=== PATIENT | male | born 1990 | race Caucasian/White ===

== ENCOUNTER 2023-03-06 18:29 | Emergency (ER) | payer OTHER ==
[~2023-03-06] VITALS: Ht 185.4 cm; Wt 93.0 kg
[2023-03-06 18:48] VITALS: BP_SYST 152
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
--- NOTE | 2023-03-06 19:19 | NUR ---
Dr. Gardiner with patient in triage for MSE.
[2023-03-06] MEDS ORDERED: IBUPROFEN 800 MG TABLET PO ONE (19:30)
[2023-03-06] MEDS ORDERED: DICL20GE TP (21:15)
[2023-03-06] MEDS ORDERED: IBUP-1971 PO (21:15)
[2023-03-06 21:55] VITALS: BP_SYST 140
--- NOTE | 2023-03-06 21:55 | NUR ---
Patient given written and verbal discharge instructions and verbalizes understanding. ER DR. FORREST discussed with patient the results and treatment provided. Patient in stable condition. ID arm band removed. Rx of MOTRIN AND VOLTAREN given. Patient educated on pain management and to follow up with PMD. Pain Scale 0. Opportunity for questions provided and answered. Medication side effect fact sheet provided.
== END 2023-03-06 21:55 | disposition home or self-care (01) ==
LOC: SED 18:29
DX: S16.1XXA Strain of muscle, fascia and tendon at neck level, initial encounter (principal); S30.0XXA Contusion of lower back and pelvis, initial encounter; Z79.899 Other long term (current) drug therapy; V89.2XXA Person injured in unspecified motor-vehicle accident, traffic, initial encounter; Y93.89 Activity, other specified; Y92.89 Other specified places as the place of occurrence of the external cause; Y99.8 Other external cause status
CPT/HCPCS: 72040-TC; 72100-TC; 99284